=== PATIENT | female | born 1985 | race Caucasian/White ===

== ENCOUNTER 2017-10-14 21:52 | Emergency (ER) | payer SELFPAY ==
[~2017-10-14] VITALS: Ht 177.8 cm; Wt 55.8 kg
[~2017-10-14 21:52] MED LIST: AMOXICILLIN500 MG ORAL; IBUPROFEN600 MG ORAL
[2017-10-14 21:58] VITALS: BP 105/58
--- NOTE | 2017-10-14 22:10 | Emergency Room Report ---
History of Present Illness General Chief Complaint: Lower Extremity Injury Source: Patient Present Illness HPI Patient present with complaints of left ankle pain Patient reports a mechanical trip and fall on the left ankle pain is 5/10 Patient called paramedics unable to bear weight on that side Denies any other trauma denies any neck pain or headache denies any knee pain denies any hip pain Allergies: Coded Allergies: No Known Allergies (Unverified , 05/04/15) Patient History Past Medical History: see triage record Pertinent Family History: none Last Menstrual Period: "yesterday" Now: No Reviewed Nursing Documentation: PMH: Agreed, PSxH: Agreed Nursing Documentation-PMH Past Medical History: No Stated History Review of Systems All Other Systems: negative except mentioned in HPI Physical Exam Vital Signs Date Time Temp Pulse Resp B/P (MAP) Pulse Ox O2 Delivery O2 Flow Rate FiO2 10/14/17 21:48 98.8 66 18 105/58 98 Room Air Sp02 EP Interpretation: reviewed, normal General Appearance: well appearing, no apparent distress Head: normocephalic, atraumatic Eyes: bilateral eye PERRL, bilateral eye EOMI ENT: hearing grossly normal, normal pharynx Neck: full range of motion, supple Respiratory: lungs clear Cardiovascular #1: regular rate, rhythm Musculoskeletal: swelling - Left lateral ankle, pulses intact no obvious laceration Neurologic: alert, oriented x3, responsive Skin: other Lymphatic: no adenopathy Procedures Splinting Splinting : Consent: Verbal Location: left ankle Pre-Made Type: aircast Splint: sugar-tong Pre-Proc Neuro Vasc Exam: normal Post-Proc Neuro Vasc Exam: normal Patient Tolerated: Well Complications: None Medical Decision Making Diagnostic Impression: Primary Impression: Ankle sprain ER Course Upon initial presentation patient had imaging studies obtained There is clinical sign of swelling Patient was provided with pain medicine X-ray imaging does not show any obvious acute fracture Given the swelling however patient was discussed regarding splint Also regarding repeat imaging if the discomfort persists Patient is understanding of this and will have close outpatient followup Other X-Ray Diagnostic Results Other X-Ray Diagnostic Results : X-Ray ordered: left ankle # of Views/Limited Vs Complete: 3 View Indication: Pain EP Interpretation: Yes Interpretation: no dislocation, no soft tissue swelling, no fractures Impression: No acute disease Electronically Signed by: Temitope Torres DO Last Vital Signs Date Time Temp Pulse Resp B/P (MAP) Pulse Ox O2 Delivery O2 Flow Rate FiO2 10/14/17 21:58 98.8 76 18 105/58 98 Room Air Status: improved Disposition: HOME, SELF-CARE Condition: Improved Scripts Ibuprofen* (MOTRIN*) 600 Mg Tablet 600 MG ORAL Q8H Y for For Pain, #20 TAB 0 Refills Prov: TEMITOPE TORRES D.O. 10/14/17 Additional Instructions: Patient is provided with the discharge instructions notified to follow up with primary doctor in the next 2-3 days otherwise return to the er with any worsening symptoms. Please note that this report is being documented using [employer] technology. This can lead to erroneous entry secondary to incorrect interpretation by the dictating instrument. TEMITOPE TORRES D.O. Oct 14, 2017 22:10
[2017-10-14] MEDS ORDERED: IBUPROFEN600 MG ORAL (22:58)
[2017-10-14 23:15] VITALS: BP 107/67
--- NOTE | 2017-10-15 12:30 | Diagnostic Imaging Report ---
Indication: left ankle pain Comparison: None Findings: 3 views of the left ankle obtained. No acute fracture, malalignment, periostitis, or osteochondral defects are identified. There is lateral soft tissue swelling noted. Impression: No acute findings
== END 2017-10-14 23:15 | disposition home or self-care (01) ==
LOC: EDBD 21:52 → EMR 22:31
DX: S93.402A Sprain of unspecified ligament of left ankle, initial encounter (principal); W01.0XXA Fall on same level from slipping, tripping and stumbling without subsequent striking against object, initial encounter; Y92.9 Unspecified place or not applicable
CPT/HCPCS: 99283